=== PATIENT | male | born 2000 | race African-American/Black ===

== ENCOUNTER 2020-02-09 22:51 | Emergency (ER) | payer SELFPAY ==
[~2020-02-09] VITALS: Ht 167.6 cm; Wt 95.3 kg
== END 2020-02-09 23:11 | disposition home or self-care (01) ==
LOC: ER 22:51
DX: S01.81XA Laceration without foreign body of other part of head, initial encounter (principal); W22.8XXA Striking against or struck by other objects, initial encounter; Y92.008 Other place in unspecified non-institutional (private) residence as the place of occurrence of the external cause
CPT/HCPCS: 99282